=== PATIENT | male | born 1950 ===

== ENCOUNTER 2018-08-05 10:55 | Inpatient (IN) | payer MEDICARE ==
[2018-08-05] MEDS ORDERED: Ondansetron ODT 4 MG TAB PO PRN (13:58)
[2018-08-05] MEDS ORDERED: Ondansetron HCl/PF 4 MG/2 ML Vial IVP PRN (13:58)
[2018-08-05] MEDS ORDERED: Acetaminophen 650 MG Suppository PR PRN (13:58)
[2018-08-05] MEDS ORDERED: RENALLY ADJUST ABX IVPB PRN (14:03)
[2018-08-05] MEDS ORDERED: Dextrose 50% Abboject 50 ML SYRINGE SLOW IVP PRN (14:03)
[2018-08-05] MEDS ORDERED: Insulin Regular 300 UNITS/3 ML VIAL SC PRN (14:03)
[2018-08-05] MEDS ORDERED: Dextrose 5% in Water 1,000 ML IV PRN (14:03)
[2018-08-05] MEDS ORDERED: Acetaminophen 650 MG/20.3 ML UDCUP PO PRN (14:06)
[2018-08-05] MEDS ORDERED: Lacri-Lube Opth Oint 3.5 GM TUBE EA EYE PRN (14:06)
[2018-08-05] MEDS ORDERED: Sodium Bicarbonate 100 MEQ in Sodium Chloride 0.45% 1,000 ML IV SCH (14:15)
[2018-08-05 14:44] LABS: Hemoglobin 11.3 g/dL (14.0-18.0); Lactic Acid 2.4 mmol/L (0.5-2.2); Mean Corpuscular HGB CONC 32.7 g/dL (32.0-36.0); Mean Corpuscular Hemoglobin 31.5 pg (27.0-31.0); Mean Corpuscular Volume 96.6 fL (78.0-98.0); Mean Platelet Volume 8.1 fL (7.4-10.4); Platelet Count 205 thou/uL (130-400); RBC Distribution Width 13.6 % (11.5-14.5); Red Blood Cell (RBC) Count 3.59 mill/uL (4.70-6.10); White Blood Cell (WBC) Count 6.4 thou/uL (4.8-10.8)
[2018-08-05 14:49] LABS: ALT (SGPT) 285 U/L (8-55); AST (SGOT) 605 U/L (5-34); Alkaline Phosphatase 69 U/L (40-150); Anion Gap 15 mmol/L (10-20); BUN (Urea Nitrogen) 58 mg/dL (8.4-25.7); Bilirubin, Total 0.5 mg/dL (0.2-1.2); CRP (Inflammatory) 26.19 mg/dL (= or < 0.5); Calc. Creatinine Clearance 44 mL/min (70-130); Calcium 7.9 mg/dL (7.8-10.44); Carbon Dioxide 17 mmol/L (23-31); Chloride 103 mmol/L (98-107); Estimated GFR-MDRD 26; Glucose 158 mg/dL (80-115); Magnesium 1.4 mg/dL (1.6-2.6); Phosphorus 3.5 mg/dL (2.3-4.7); Sodium 131 mmol/L (136-145)
--- NOTE | 2018-08-05 14:49 | HP ---
DATE OF ADMISSION: 08/05/2018 PRIMARY CARE PHYSICIAN: Dr. Gatito Rose at [facility]. CHIEF COMPLAINT: Patient is a transfer from [facility] for higher level of c are. 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 This started on 08/03/2018 around 9 :00 p.m. after he ate a hamburger. His abdominal pain was cramping and generalized. He had vomited 5 times. In the emergency room at [place], he was found to have sodium of 134, potassium 4.4, lac tic acid 3.1 with creatinine 2.6. WBC 11.4. His symptoms improved with conservative measures. His stool for C. diff was negative. His stool; however, was leukocyte esterase positive. He was admitte d to [facility] for possible gastroenteritis. He did well until yesterday. This morning, he complained of abdominal distention along with pain. He was sent for the CT scan whe n he passed out. He was also found to have difficulty breathing. ABGs were done that showed pH of 7 .24 with CO2 of 33, pO2 of 100%. His bicarbonate was 14. He was also found to have elevated LFTs. He was transferred to this facility for higher level of care. PAST MEDICAL HISTORY: 1. Diabetes mellitus type 1, on insulin. 2. Degenerative joint disease. 3. Chronic kidney disease, baseline creatinine unavailable. 4. Chronic idiopathic demyelinating polyneuropathy. 5. Hyperlipidemia. 6. Hypertension. 7. Coronary artery disease, status post CABG x2 in 2005. 8. Peripheral vascular disease. 9. Diabetic retinopathy. 10. History of cerebrovascular accident. 11. History of falls. 12. Hypothyroidism. PAST SURGICAL HISTORY: 1. CABG. 2. Multiple back surgeries. 3. Right shoulder surgery. 4. Cholecystectomy. 5. GERD. ALLERGIES: Patient is allergic to TENORMIN. CURRENT HOME MEDICATIONS: We will try to obtain accurate list of medications from the family. SOCIAL HISTORY: Patient currently lives at home with his family. He is FULL CODE, makes his own dec ision with the help of his family. No current use of smoking, alcohol or drug use. He drinks alcoho l socially. FAMILY HISTORY: Mother had heart disease. She at the age of 64 with congestive heart failure. Father had unknown brain surgery. One sister at age of 30 with leukemia. REVIEW OF SYSTEMS: The following complete review of systems was negative, unless otherwise mentioned in the HPI or below: Constitutional: Weight loss or gain, ability to conduct usual activities. Skin: Rash, itching. Eyes: Double vision, pain. ENT/Mouth: Nose bleeding, neck stiffness, pain, tenderness. Cardiovascular: Palpitations, dyspnea on exertion, orthopnea. Respiratory: Shortness of breath, wheezing, cough, hemoptysis, fever or night sweats. Gastrointestinal: Poor appetite, abdominal pain, heartburn, nausea, vomiting, constipation, or diarr hea. Genitourinary: Urgency, frequency, dysuria, nocturia. Musculoskeletal: Pain, swelling. Neurologic/Psychiatric: Anxiety, depression. Allergy/Immunologic: Skin rash, bleeding tendency. PHYSICAL EXAMINATION: CURRENT VITAL SIGNS: Patient is afebrile with blood pressure of 100/68, heart rate of 109, O2 satura tion 100% on nasal cannula, respiration of 26. GENERAL: A 67-year-old male in no apparent distress. NG tube in place. HEENT: Head atraumatic, normocephalic. Sclerae are anicteric. Dry mucous membrane, no oral lesion. NECK: Supple, no JVD appreciated. No carotid bruit. LUNGS: Clear to auscultation bilaterally with diminished air entry at bases. HEART: S1, S2 present. Regular rate and rhythm. No rubs or gallops. Healed midline scar from prev ious CABG. ABDOMEN: Protuberant. Bowel sounds were somewhat hyperactive. Mild diffuse tenderness, no rebound or guarding appreciated. EXTREMITIES: No edema or calf tenderness. NEUROLOGIC: Grossly nonfocal, moves all four extremities. PSYCHIATRIC: Alert, awake, oriented x3. SKIN: Warm and dry. LYMPH NODES: No palpable lymph nodes in the neck. LABORATORY DATA AND IMAGING DATA: 1. Lab findings at [facility], sodium 128, potassium 4.8, chloride 101, bicarb 14, BUN 56, creatinine 1.29, albumin of 3.4, total bilirubin 0.8, alkaline phosphatase 85, AST 940, ALT 361. 2. Urinalysis was negative for WBC, bacteria yesterday. 3. Creatinine yesterday was 2.6. 4. CBC showed WBC 11.4 with hemoglobin 13, hematocrit 38.8, platelet count of 320. Influenza screen was negative. 5. Telemetry monitoring by my review showed sinus tachycardia. 6. CT scan of the abdomen at [facility] showed bowel obstruction. There is a disk in the chart. No report available. IMPRESSION 1. Small-bowel obstruction on the CT scan. 1. Syncopal episode earlier today. 2. Hospitalization for nausea, vomiting, diarrhea with suspected gastroenteritis two days ago at [facility]. 3. Diabetes mellitus type 1. 4. Acute kidney injury on chronic kidney disease stage 4. 5. Metabolic acidosis. 6. Respiratory distress, improved. 7. CIDP. 8. Gastroesophageal reflux disease. 9. Degenerative joint disease. 10. Hypothyroidism. 11. Hyperlipidemia. 12. Hypertension. PLAN: The patient will be monitored in the Intensive Care Unit. Critical Care and General Surgery w ill be consulted. We will repeat all the labs. We will start him on empiric antibiotics. We will g et stool workup. Insulin sliding scale. IV hydration. Plan of care was discussed with the patient and he stated understanding.
[2018-08-05 14:50] LABS: Band 12 % (5-11); Dohle Bodies SLIGHT; Lymphocytes 4 % (21-51); MDiff Complete? YES; Metamyelocyte 1 % (0-0); Monocytes 7 % (0-10); Neutrophil 76 % (42-75); PLT Morphology Comment Appears Adequate; Polychromasia SLIGHT = 2-3 cells (100X) (0-2/hpf)
[2018-08-05 15:06] LABS: Troponin I 4.704 ng/mL (< 0.028)
[2018-08-05] MEDS: Sodium Chloride 0.9% 1,000 ML IV SCH (15:55)
[2018-08-05] MEDS ORDERED: Aspirin 300 MG Suppository PR SCH (16:00)
[2018-08-05] MEDS: metroNIDAZOLE 500 MG in Premix Bag 1 BAG IVPB SCH (16:26)
[2018-08-05] MEDS: Piperacillin/Tazobactam 3.375 GM in Sodium Chloride 0.9% 100 ML IVPB SCH (16:44)
[2018-08-05 20:14] LABS: Lactic Acid 1.4 mmol/L (0.5-2.2)
[2018-08-05 20:25] LABS: Base Excess (BEa) -4.3 mEq/L (-2.0 to +3.0); CO2 Tension 34.1 mmHg (35.0-45.0); Calcium, Ionized 1.07 mmol/L (1.12-1.30); Carboxyhemoglobin (COHb) 1.6 gm% (0.0-3.0); Hemoglobin (Hb) 10.9 g/dL (14.0-18.0); O2 Tension (PaO2) 83.7 mmHg (> 80.0); Potassium - ABG Lab 3.82 mmol/L (3.70-5.30); pH, Arterial 7.39 (7.35-7.45)
[2018-08-05 20:26] LABS: ALV-art Gradient 73.315 (0-20); Puncture Site LBA
[2018-08-05 20:37] LABS: CKMB 48.6 ng/mL (0-6.6); Troponin I 21.883 ng/mL (< 0.028)
[2018-08-05] MEDS ORDERED: Heparin 10,000 UNITS/ 10 ML VIAL SLOW IVP SCH (21:15)
[2018-08-05] MEDS ORDERED: Metoprolol Tartrate 5 MG/5 ML VIAL IVP SCH ×2 (21:15→21:45)
--- NOTE | 2018-08-05 21:21 | CON ---
DATE OF CONSULTATION: 08/05/2018 This encompassed 70 minutes of time. Of that time, greater than 50% was spent with the patient and/o r on the patient's unit in the hospital. CONSULTING PHYSICIAN: Dr. Ty from the Hospitalist group. REASON FOR CONSULTATION: ICU stay. HISTORY OF PRESENT ILLNESS: The patient is a 67-year-old male who was admitted to the hospital in [facility] yesterday. He became ill after consuming some hamburger meat. He has been having voluminous diarrhea. Today, when he went for a CT scan, he had some respiratory distress. An ABG was drawn sh owing a metabolic acidosis. The CT scan apparently showed a small-bowel obstruction. He was sent he re for further evaluation from our general surgical team. At the time of my exam, the patient is abl e to communicate without much difficulty. PAST MEDICAL HISTORY: 1. Chronic inflammatory demyelinating polyneuropathy. 2. Diabetes mellitus type 2. 3. Gastroesophageal reflux. 4. Hypertension. 5. Hypothyroidism. 6. Coronary artery disease. PAST SURGICAL HISTORY: 1. Two-vessel coronary artery bypass grafting surgery. 2. Cervical surgery. 3. Cholecystectomy. 4. Lumbar surgery. OUTPATIENT MEDICATIONS: Levothyroxine 125 mcg every morning; gabapentin 300 mg 1/2 tablet 3 times da fredi; primidone 50 mg 2 in the morning, 1 in lunch, 2 at bedtime; Nexium 40 mg daily; cyclobenzaprine 5 mg 2 nightly; atorvastatin 40 mg daily; fenofibrate 200 mg daily; azathioprine 50 mg daily for his CIDP; liothyronine 5 mg daily; cilostazol 100 mg daily; oxcarbazepine 300 mg nightly; Plavix 75 mg d aily; ramipril 5 mg twice daily; folate 40 mg daily; Advil 200 mg 2 nightly; vitamin D3 of 5000 inter national units daily; Alphagan eyedrops, aspirin 81 mg daily; fish oil 1200 mg daily; Tresiba 57 unit s in the morning; NovoLog insulin 19 units in the morning, 25 units in the evening; Bystolic 5 mg robyn ly; and amlodipine 5 mg daily. ALLERGIES: TENORMIN. SOCIAL HISTORY: Drinks 1-2 drinks per month. Never a smoker. Does not use illicit drugs. FAMILY MEDICAL HISTORY: Unknown. REVIEW OF SYSTEMS: Remarkable for abdominal pain, nausea, and diarrhea, otherwise negative. PHYSICAL EXAMINATION: VITAL SIGNS: Temperature 99.1, O2 sat 100% on 3 liters, heart rate 111, blood pressure 106/67, blood glucose 154. GENERAL: The patient is an elderly male, who seems to be in some abdominal discomfort. He does not seem to be in any respiratory discomfort. HEENT: Pupils are reactive. Sclerae are anicteric. Oropharynx dry. NECK: No JVD, no carotid bruits, no thyromegaly. CARDIOVASCULAR: S1, S2, slightly tachycardic. No audible murmur. LUNGS: Clear without wheeze or rhonchi. ABDOMEN: Distended, slightly tympanic. He is tender in the midline. EXTREMITIES: No clubbing, cyanosis, or edema. LABORATORY DATA: White blood cell count 6.4, hemoglobin 11, hematocrit 34.6, platelet count 205. An ABG from this morning apparently showed pH 7.24. His chemistry is pending. ASSESSMENT: 1. Small-bowel obstruction. 2. Metabolic acidosis. 3. History of diabetes mellitus. 4. History of chronic inflammatory demyelinating polyneuropathy. PLAN: 1. General surgical consultation has been ordered by the hospitalist group. 2. IV hydration. 3. He was apparently given bicarbonate in [place]. We are rechecking his chemistry at this time. He may need to be started on a bicarbonate drip. 4. Broad spectrum IV antibiotics. 5. Would suggest a cortisol check if that has not been done. The patient could have been on steroid s in the last year with his chronic inflammatory demyelinating polyneuropathy and addisonian crisis c ould present like this.
[2018-08-05] MEDS: Heparin 25,000 units/D5W 500 ML IV SCH (21:33)
[2018-08-05] MEDS: Famotidine/PF 20 mg/2ml Vial SLOW IVP SCH (21:42)
[2018-08-05 22:31] LABS: CKMB 62.7 ng/mL (0-6.6); Troponin I 29.364 ng/mL (< 0.028)
[2018-08-06] MEDS: metroNIDAZOLE 500 MG in Premix Bag 1 BAG IVPB SCH ×3 (01:08→16:53)
[2018-08-06] MEDS: Piperacillin/Tazobactam 3.375 GM in Sodium Chloride 0.9% 100 ML IVPB SCH ×3 (01:11→16:54)
[2018-08-06] MEDS: Sodium Chloride 0.9% 1,000 ML IV SCH ×3 (01:12→16:38)
[2018-08-06 01:39] LABS: Band 24 % (5-11); Hemoglobin 11.1 g/dL (14.0-18.0); Lymphocytes 2 % (21-51); MDiff Complete? YES; Mean Corpuscular HGB CONC 32.9 g/dL (32.0-36.0); Mean Corpuscular Hemoglobin 31.1 pg (27.0-31.0); Mean Corpuscular Volume 94.7 fL (78.0-98.0); Mean Platelet Volume 8.2 fL (7.4-10.4); Monocytes 11 % (0-10); Neutrophil 63 % (42-75); Platelet Count 182 thou/uL (130-400); RBC Distribution Width 13.6 % (11.5-14.5); Red Blood Cell (RBC) Count 3.58 mill/uL (4.70-6.10); White Blood Cell (WBC) Count 6.9 thou/uL (4.8-10.8)
[2018-08-06 01:53] LABS: Troponin I 40.377 ng/mL (< 0.028)
[2018-08-06 02:23] LABS: ALT (SGPT) 249 U/L (8-55); AST (SGOT) 484 U/L (5-34); Albumin 2.9 g/dL (3.4-4.8); Alkaline Phosphatase 60 U/L (40-150); BUN (Urea Nitrogen) 60 mg/dL (8.4-25.7); Bilirubin, Total 0.4 mg/dL (0.2-1.2); Calc. Creatinine Clearance 50 mL/min (70-130); Carbon Dioxide 16 mmol/L (23-31); Estimated GFR-MDRD 31; Globulin 3.1 g/dL (2.4-3.5); Glucose 144 mg/dL (80-115); Magnesium 1.5 mg/dL (1.6-2.6)
[2018-08-06 02:33] LABS: Anion Gap 17 mmol/L (10-20); Chloride 105 mmol/L (98-107); Potassium 4.1 mmol/L (3.5-5.1); Sodium 134 mmol/L (136-145)
--- NOTE | 2018-08-06 03:51 | CON ---
DATE OF CONSULTATION: 08/05/2018 Referred by Internal Medicine. SURGERY ATTENDING: Dr. Tor Montes. REASON FOR CONSULTATION: Acute abdomen, concern for SBO. HISTORY OF PRESENT ILLNESS: Mr. De Santiago is a 67-year-old male with a past medical history of coronary artery disease, CVA, CABG, cholecystectomy, CIDP, blindness, CKD listed as stage 4 per chart review, although not reported per the family, who was transferred to our facility today from [facility] after a 2-day stay for diarrhea and acute illness. The patient had a CT today that was not enhanc ed with oral or IV contrast and it showed air attenuation in the left hepatic lobe, suggesting possib le portal venous air. No pneumatosis. Normal caliber appendix, mucosal thickening of the sigmoid co joan and rectum and concern for a small-bowel obstruction. The patient is still passing diarrhea sinc e Wednesday. He has an NG tube with bilious output. He is passing flatus. He has some mild general ized abdominal pain. He was also noted to have a troponin of 4, so Cardiology has been consulted. T he patient did have a lactate that was elevated according to the RN on chart review of over 3 today. He has no leukocytosis here. His renal function has been worsening and he has a metabolic acidosis. REVIEW OF SYSTEMS: General: Generalized weakness. Respiratory: No respiratory distress, no cough, no shortness of breath. Cardiovascular: No current chest pain. Abdomen: Slight abdominal tendern ess. No vomiting since Wednesday. Positive for diarrhea. Positive for flatus and decreased urine o utput per the patient. The remainder of comprehensive review of systems as regard is negative other than reported above and the HPI. PAST MEDICAL HISTORY: 1. Diabetes. 2. Hypertension. 3. Cerebrovascular accident. 4. CKD. 5. Blindness. 6. CIDP. PAST SURGICAL HISTORY: 1. Cholecystectomy. 2. CABG. 3. Rotator cuff surgery. MEDICATIONS: Imuran 50 mg daily; omega 3 fatty acids 1 cap daily; aspirin 81 daily; Bystolic 5 mg da fredi; aspart 100 mg subcu as directed; amlodipine 5 mg daily; Tresiba 57 units subcu daily; brimonidin e eye drops 1 drop each eye daily; vitamin D3 5000 units daily; ibuprofen as needed at night; folic a tamela 0.4 mg daily; Altace 2 tabs, unknown dose twice daily; Cytomel 5 mcg daily; fenofibrate 200 mg da fredi; clopidogrel 75 mg daily; cilostazol 100 mg a daily; atorvastatin 40 mg daily; Trileptal 300 mg d aily; Nexium 20 mg daily; Flexeril 2 tabs in the evening, unknown dose; Mysoline 1 tab at noon 2 tabs twice daily; gabapentin 0.5 three times daily; Synthroid 125 mcg daily. ALLERGIES: ATENOLOL. FAMILY HISTORY: Noncontributory. 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 SOCIAL HISTORY: The patient is a lifelong nonsmoker, socially drinks alcohol. Lives with his o [facility]. PHYSICAL EXAMINATION: VITAL SIGNS: Temperature is 99.1, blood pressure 124/59, heart rate is 106, respiratory rate is 24, O2 sats 100% on room air. GENERAL: This is a 67-year-old male lying in bed, appears slightly withdrawn, but will answer questi ons. Reports dry mouth and chronically ill, in mild distress. HEENT: Normocephalic, atraumatic. Trachea is midline. NECK: No JVD is appreciated. Does have dry mucous membranes. CARDIOVASCULAR: No murmurs are appreciated. Slight tachypnea is appreciated. Tachycardic. Rhythm is regular. He does have trace bipedal edema 2+ the level just above the ankles. Strong radial puls es and no yury murmurs are appreciated. ABDOMEN: Protuberant. It is mildly distended, mildly tender throughout, but no yury peritoneal sig ns are appreciated. PELVIS: A Cruz and catheters in place with yellow urine. MUSCULOSKELETAL: Moves extremities well. No yury deformities. SKIN: Pale, warm, and dry. PSYCHIATRIC: Somewhat withdrawn, but otherwise is conversive. NEUROLOGIC: Alert and oriented. LABORATORY DATA: We have in our system, white blood cell count of 6.4, platelets of 205, hemoglobin and hematocrit 11.3 and 34.6 respectively. Chemistry from today shows troponin of 4.70. Sodium is 1 31, potassium 4.0, chloride is 103, carbon dioxide is 17, BUN is 58, creatinine is 2.46, glucose 158, AST and ALT 605 and 285 respectively. CRP is 26.19. Albumin is 3.0. Cortisol is 21.1. A CT non-c ontrast from the outside facility which we are trying to pull the images up now, it shows: 1. Markedly limited evaluation. 2. Air attenuation in the left hepatic lobe suggesting possible portal venous air. There does appea r to be a small-bowel obstruction and completely evaluated. Normal appendix. Mucosal thickening of the sigmoid colon and rectum. ASSESSMENT AND PLAN: 1. Possible acute abdomen. 2. Concern for ischemic colitis. 3. Does not appear to be small-bowel obstruction. RECOMMENDATIONS: 1. Dr. Montes was not at the bedside. We are evaluating. 2. Check a lactate level. 3. He needs hydration. Currently on normal saline 125 per hour. 4. Review current labs. 5. We will try to review imaging and create a better plan. The patient may need surgical correction of his acute process at this time. Agree with ICU admission. 6. Cardiology has seen the patient at the bedside, we appreciate recommendations. 7. We will continue to develop this dynamic plan in Mr. De Santiago and update him. The nursing staff nadine ignacio coordinate with the primary team. At this time, we recommend keeping the patient n.p.o. and shelby ignacio continue to follow along and provide surgical assistance as needed. It does not appear that the ron ledezma has a small bowel obstruction, at this time, it is a functional bowel, but we are acutely ravin rned about ischemic colitis. This patient was seen with Dr. Montes and can be updated as needed.
--- NOTE | 2018-08-06 10:06 | PDOC.PN ---
- Subjective Encounter Start Date: 08/06/18 Encounter Start Time: 10:05 Mr. De Santiago was seen today in follow-up of nausea and vomiting, and elevated troponin's. He says today he feels better. He denies abdominal pain or chest pain. He says he does not feel nauseated. - Objective Resuscitation Status: Resuscitation Status FULL:Full Resuscitation MAR Reviewed: Yes Vital Signs & Weight: Vital Signs (12 hours) Temp Pulse Resp Pulse Ox 08/06/18 06:24 100 08/06/18 06:23 91 25 H 100 08/06/18 04:00 98.3 F 08/06/18 03:00 100.3 F H 08/06/18 02:28 93 26 H 100 08/06/18 00:00 100.7 F H Weight Weight 3.771 oz Most Recent Monitor Data Heart Rate from ECG 87 NIBP 128/69 NIBP BP-Mean 88 Respiration from ECG 22 SpO2 100 I&O: 08/05/18 08/06/18 08/07/18 06:59 06:59 06:59 Intake Total 2415 Output Total 1435 Balance 980 Result Diagrams: 08/06/18 00:52 08/06/18 00:52 Additional Labs: Accuchecks 08/06/18 08/06/18 08/05/18 05:00 00:51 20:52 POC Glucose 134 H 145 H 116 H 08/05/18 14:20 POC Glucose 154 H Phys Exam - Physical Examination HEENT: PERRLA, sclera anicteric Respiratory: no wheezing, no rales, no rhonchi, clear to auscultation bilateral Cardiovascular: RRR, no significant murmur, no rub Gastrointestinal: soft, non-tender, no distention, positive bowel sounds Musculoskeletal: edema present trace pedal edema Dx/Plan (1) NSTEMI (non-ST elevated myocardial infarction) Code(s): I21.4 - NON-ST ELEVATION (NSTEMI) MYOCARDIAL INFARCTION Status: Acute (2) Diabetes mellitus type 2, insulin dependent Code(s): E11.9 - TYPE 2 DIABETES MELLITUS WITHOUT COMPLICATIONS; Z79.4 - SENIOR LIVING (CURRENT) USE OF INSULIN Status: Chronic (3) Hypertension Code(s): I10 - ESSENTIAL (PRIMARY) HYPERTENSION Status: Chronic (4) Acute renal failure Status: Acute (5) CIDP (chronic inflammatory demyelinating polyneuropathy) Code(s): G61.81 - CHRONIC INFLAMMATORY DEMYELINATING POLYNEURITIS Status: Chronic (6) Elevated LFTs Code(s): R94.5 - ABNORMAL RESULTS OF LIVER FUNCTION STUDIES Status: Acute - Plan * Nausea and Vomiting has resolved- ? due to NSTEMI. Small bowel Obstruction has been ruled out * NSTEMI- Cardiology has been consulted- Continue Heparin, and will restart his Statin and Beta-davis Continue Aspirin. Re-start Plavix as per Cardiology- Echo has been done, and results are pending * Elevated LFT's- ? due to NSTEMI- will continue to trend * HTN- blood pressure is stable, but his heart rate is a bit elevated * DM- continue SSI for now * Acute vs. Chronic kidney disease- will monitor, and hopefully can obtain some baseline levels * CIDP- stable .
[2018-08-06] MEDS: Insulin Regular 300 UNITS/3 ML VIAL SC PRN (10:14)
[2018-08-06] MEDS ORDERED: Clopidogrel Bisulfate 75 MG TAB PO SCH ×2 (10:24→11:00)
[2018-08-06] MEDS ORDERED: Metoprolol Tartrate 25 MG TAB PO SCH (11:15)
--- NOTE | 2018-08-06 11:49 | PRG ---
DATE OF SERVICE: 08/06/2018 SUBJECTIVE: Mr. De Santiago was diagnosed with a myocardial infarction last night when his troponins came back elevated. He says he feels somewhat better today. PHYSICAL EXAMINATION: VITAL SIGNS: On exam, his temperature is 98.3 with a T-max of 100.7, pulse 87, blood pressure 128/69 . A 24-hour intake 2415 and output 1435. HEENT EXAM: Unremarkable. NECK: No JVD. LUNGS: Clear without wheezing or rhonchi. CARDIOVASCULAR: S1 and S2, regular. ABDOMEN: Soft. EXTREMITIES: No edema. LABORATORY DATA: White blood cell count 6.9, hematocrit 33.9, platelet count 182. Sodium 134, potas sium 4.1, chloride 105, CO2 of 16, BUN 60, creatinine 2.1, glucose 144. His anion gap is 17, his tro ponin is 40, AST 484, ALT 249. BNP 766. ASSESSMENT: 1. Myocardial infarction. 2. Small-bowel obstruction. 3. Metabolic acidosis. 4. Renal insufficiency. 5. Diarrhea. 6. Diabetes mellitus, type 2. 7. Chronic inflammatory demyelinating polyneuropathy. PLAN: The patient is continuing gentle hydration. He is on antibiotic therapy for the small-bowel o bstruction and diarrheal illness. Dr. Nicole placed him on a heparin drip and is monitoring his ca rdiac status. The patient will remain in the CCU for the time being. His labs will be monitored molly
[2018-08-06] MEDS: OXcarbazepine 300 MG TAB PO SCH (12:01)
[2018-08-06] MEDS ORDERED: Furosemide 40 MG/4 ML VIAL ONE (16:51)
[2018-08-06] MEDS: Heparin 25,000 units/D5W 500 ML IV SCH (16:53)
[2018-08-06] MEDS ORDERED: Furosemide 20 MG/2 ML VIAL SLOW IVP SCH (17:15)
--- NOTE | 2018-08-06 18:12 | PRG ---
CRITICAL CARE NOTE Time: 30 minutes. The patient is a 67-year-old gentleman who presents with abdominal discomfort. The patient has a previous history of coronary artery disease. He is status post coronary bypass surgery x2. The patient has done remarkably well. He recently presented to a local hospital with abdominal discomfort, diarrhea and nausea and vomiting. The patient was hospitalized and hydrated. He was transferred here for further evaluation. The patient denies having any chest discomfort. He was noted to have an elevated troponin level. PAST MEDICAL HISTORY: 1. Coronary artery disease. 2. Hypertension. 3. History of cerebrovascular accident. 4. Diabetes mellitus. 5. Chronic idiopathic demyelinating polyneuropathy. 6. Hypothyroidism. PAST SURGICAL HISTORY: 1 Coronary bypass graft surgery 2. Shoulder surgery. 3. Cholecystectomy. 4. Back surgery. ALLERGIES: Tenormin. MEDICATIONS: See nursing list. SOCIAL HISTORY: Nonsmoker. PHYSICAL EXAMINATION: GENERAL: Ill-appearing gentleman with a blood pressure 124/59. NECK: Full. LUNGS: Clear to auscultation. HEART: Regular rate and rhythm, normal S1, S2 with a III/ systolic murmur. ABDOMEN: Distended and tender. EXTREMITIES: Showed trace edema. LABORATORY DATA: Sodium 131, potassium 4.0, chloride 103, bicarb 17, BUN 58, creatinine 2.46, glucose 158. AST was 605. Troponin 4.7. White blood cell count 6.4, hemoglobin 11.3, hematocrit 34.6, platelets are 205. EKG revealed normal sinus rhythm, normal ECG. IMPRESSION: 1. Possible acute abdomen. 2. History of coronary bypass surgery x2. 3. History of cerebrovascular accident. 4. Hypertension. 5. Chronic idiopathic demyelinating polyneuropathy. 6. Markedly elevated liver function tests. 7. Renal insufficiency. This unfortunate gentleman presents with a possible acute abdomen. The patient be evaluated by Surgery. He has an elevated troponin level. He is asymptomatic. His initial EKG showed no acute changes. The patient has received aspirin. We will await further recommendations from surgery. We will follow this patient with you through his hospitalization. Critical care note time 30 minutes. GIULIANO
--- NOTE | 2018-08-06 18:30 | PRG ---
DATE OF SERVICE: 08/06/2018. SUBJECTIVE: Mr. De Santiago is a 67-year-old man who I was asked to see yesterday for possible small-bowel obstruction. Clinical examination yesterday revealed essentially benign abdomen on examination. Th e patient was placed on bowel rest. Overnight, his cardiac function had worsened. He denies any abdominal pain this morning. He admits to passing some flatus. He denies any chest pain, but reports profound fatigue. OBJECTIVE: VITAL SIGNS: This morning includes blood pressure 128/69, pulse is 91, respiratory rate is 25, tempe rature is 98.3 degrees Fahrenheit, oxygen saturation is 100%. HEART: Reveals regular rate with a 2/6 systolic murmur, which is auscultated in the left sternal bor angy. LUNGS: Clear to auscultation bilaterally. Breathing regular and unlabored. ABDOMEN: Soft and obese. He has no abdominal tenderness to palpation. Bowel sounds in all four quadrants appear hypoactive. Clearly, the patient has no peritoneal signs on examination. Liver and spleen nonpalpable below costal margin. LABORATORY DATA: Today includes a CBC which has remained normal at 6900 white blood cells, hemoglobi n 11.1 and hematocrit 33.9, platelet count stable at 182,000. Metabolic profile today sodium 134, potassium 4.1, chloride is 105, bicarbonate is 16, BUN is 60, cre atinine is 2.14, glucose is 144. AST and ALT both decreasing at 484 and 249 respectively. Troponin I, which was 4 on admission yesterday, is now markedly elevated at 40.3. Beta natriuretic peptide/BNP is 766. IMPRESSION: 1. Acute decompensated cardiomyopathy. 2. Portal venous gas likely suspicious for ischemic bowel insult, although there is no clinical evid ence of bowel necrosis. There is definitely no evidence of acute small-bowel obstruction for this patient. PLAN: Defer critical care management to the Pulmonary and Critical Care team. There is no acute surgical indication for this patient at this time. General Surgery will continue t o follow along and make further recommendations as necessary.
[2018-08-06] MEDS: Metoprolol Tartrate 25 MG TAB PO SCH (21:08)
[2018-08-06] MEDS: Famotidine/PF 20 mg/2ml Vial SLOW IVP SCH (21:08)
[2018-08-07] MEDS: metroNIDAZOLE 500 MG in Premix Bag 1 BAG IVPB SCH ×4 (00:13→23:56)
[2018-08-07] MEDS: Piperacillin/Tazobactam 3.375 GM in Sodium Chloride 0.9% 100 ML IVPB SCH ×4 (00:14→23:56)
[2018-08-07 04:12] LABS: ALT (SGPT) 184 U/L (8-55); AST (SGOT) 295 U/L (5-34); Albumin 3.2 g/dL (3.4-4.8); Alkaline Phosphatase 51 U/L (40-150); Anion Gap 15 mmol/L (10-20); BUN (Urea Nitrogen) 42 mg/dL (8.4-25.7); Bilirubin, Total 0.5 mg/dL (0.2-1.2); CK (CPK) 1418 U/L (30-200); Calc. Creatinine Clearance 69 mL/min (70-130); Calcium 8.4 mg/dL (7.8-10.44); Carbon Dioxide 19 mmol/L (23-31); Chloride 103 mmol/L (98-107); Estimated GFR-MDRD 45; Globulin 3.2 g/dL (2.4-3.5); Glucose 170 mg/dL (80-115); Potassium 3.5 mmol/L (3.5-5.1); Protein, Total 6.4 g/dL (5.8-8.1); Sodium 133 mmol/L (136-145)
[2018-08-07 04:23] LABS: Hemoglobin 11.3 g/dL (14.0-18.0); Hypochromia SLIGHT = 6-15 cells (100X) (0-5/hpf); Lymphocytes 4 % (21-51); MDiff Complete? YES; Mean Corpuscular HGB CONC 33.1 g/dL (32.0-36.0); Mean Corpuscular Hemoglobin 31.5 pg (27.0-31.0); Mean Corpuscular Volume 95.2 fL (78.0-98.0); Mean Platelet Volume 8.1 fL (7.4-10.4); Monocytes 3 % (0-10); Neutrophil 93 % (42-75); PLT Morphology Comment Appears Adequate; Platelet Count 195 thou/uL (130-400); RBC Distribution Width 13.6 % (11.5-14.5); White Blood Cell (WBC) Count 8.6 thou/uL (4.8-10.8)
[2018-08-07] MEDS: Levothyroxine Sodium 125 MCG TAB PO SCH (05:26)
[2018-08-07] MEDS: Liothyronine Sodium 5 MCG TAB PO SCH (05:26)
[2018-08-07] MEDS: Clopidogrel Bisulfate 75 MG TAB PO SCH (08:00)
[2018-08-07] MEDS: azaTHIOprine 50 MG TAB PO SCH (08:00)
[2018-08-07] MEDS: Metoprolol Tartrate 25 MG TAB PO SCH ×2 (08:01→20:28)
[2018-08-07] MEDS ORDERED: Nebivolol HCl 5 MG TAB PO SCH (09:00)
[2018-08-07] MEDS ORDERED: Aspirin 81 mg Enteric Coated Tablet PO SCH (09:00)
--- NOTE | 2018-08-07 09:17 | PDOC.PN ---
- Subjective Encounter Start Date: 08/07/18 Encounter Start Time: 09:15 Mr. De Santiago was seen today in follow-up of NSTEMI. Today he feels a bit better. He feels is voice is stronger. At times he feels short of breath, but this he attributes to sliding down in bed, and it is positional. He denies any chest pain. - Objective Resuscitation Status: Resuscitation Status FULL:Full Resuscitation MAR Reviewed: Yes Vital Signs & Weight: Vital Signs (12 hours) Temp Pulse Resp Pulse Ox 08/07/18 08:00 98.9 F 08/07/18 07:17 95 08/07/18 07:15 93 28 H 95 08/07/18 04:00 99.0 F 08/07/18 02:25 91 19 100 08/07/18 00:00 99.5 F 08/06/18 21:56 93 22 H 100 Weight Admit Weight 236 lb 12.423 oz Weight 237 lb 3.478 oz Most Recent Monitor Data Heart Rate from ECG 91 NIBP 146/93 NIBP BP-Mean 110 Respiration from ECG 20 SpO2 95 I&O: 08/06/18 08/07/18 08/08/18 06:59 06:59 06:59 Intake Total 2415 3092 300 Output Total 1435 2195 160 Balance 980 897 140 Result Diagrams: 08/07/18 03:30 08/07/18 03:30 Additional Labs: Accuchecks 08/07/18 08/07/18 08/06/18 03:21 01:23 21:14 POC Glucose 158 H 157 H 167 H 08/06/18 08/06/18 17:18 10:06 POC Glucose 139 H 162 H Phys Exam - Physical Examination HEENT: PERRLA, sclera anicteric Respiratory: no wheezing, no rales, no rhonchi, clear to auscultation bilateral Cardiovascular: RRR, no rub 2/6 systolic murmur to carotids, no gallop Gastrointestinal: soft, non-tender, positive bowel sounds + mildly distended, tympanic to percussion Musculoskeletal: no edema, pulses present Neurological: non-focal Skin: normal turgor, cap refill <2 seconds Dx/Plan (1) NSTEMI (non-ST elevated myocardial infarction) Code(s): I21.4 - NON-ST ELEVATION (NSTEMI) MYOCARDIAL INFARCTION Status: Acute (2) Chronic systolic congestive heart failure, NYHA class 2 Code(s): I50.22 - CHRONIC SYSTOLIC (CONGESTIVE) HEART FAILURE Status: Acute (3) Diabetes mellitus type 2, insulin dependent Code(s): E11.9 - TYPE 2 DIABETES MELLITUS WITHOUT COMPLICATIONS; Z79.4 - RETIREMENT (CURRENT) USE OF INSULIN Status: Chronic (4) Hypertension Code(s): I10 - ESSENTIAL (PRIMARY) HYPERTENSION Status: Chronic (5) Acute renal failure Status: Acute (6) CIDP (chronic inflammatory demyelinating polyneuropathy) Code(s): G61.81 - CHRONIC INFLAMMATORY DEMYELINATING POLYNEURITIS Status: Chronic (7) Elevated LFTs Code(s): R94.5 - ABNORMAL RESULTS OF LIVER FUNCTION STUDIES Status: Acute (8) Aortic stenosis Code(s): I35.0 - NONRHEUMATIC AORTIC (VALVE) STENOSIS Status: Acute - Plan * NSTEMI- continue Heparin drip, beta-davis, aspirin and plavix * Echo was noted, he has an EF of 20-30% with severe . He appears clinically compensated, and not in overt heart failure- will re-start Ramipril once he has recovered from the Acute renal failure * Acute renal failure- improved creatinine is down to 1.55- continue gentle hydration * DM- blood glucose is stable. * Records from [facility] in [place] have been requested
--- NOTE | 2018-08-07 10:01 | PRG ---
DATE OF SERVICE: 08/07/2018 SUBJECTIVE: The patient remains in the CCU. He is on a heparin drip. He is no longer having abdomi nal pain. His echo yesterday showed ejection fraction of about 20%-30%. He has severe aortic stenos is. PHYSICAL EXAMINATION: VITAL SIGNS: His temperature is 98.9, pulse 91, blood pressure 146/93, O2 sat 95% on nasal cannula. He is on heparin drip. HEENT: Unremarkable. NECK: No JVD. CARDIAC: S1, S2 regular with 3/6 systolic murmur. LUNGS: Clear. ABDOMEN: Soft, distended, hypoactive bowel sounds. EXTREMITIES: No clubbing, cyanosis, or edema. LABORATORY DATA: White blood cell count 8.6, hematocrit 34.3, platelet count 195. PTT is 49.6. Sod ium 133, potassium 3.5, chloride 103, CO2 of 19, BUN 42, creatinine 1.5, glucose 170, AST 295, ALT 18 4. CPK 1418. ASSESSMENT: 1. Acute myocardial infarction. 2. Severe aortic stenosis. 3. Likely ischemic bowel and ischemic liver. 4. Diabetes mellitus type 2. 5. Chronic inflammatory demyelinating polyneuropathy. 6. Probably not a true small-bowel obstruction. PLAN: The patient is continuing antibiotic therapy for the ischemic bowel. He is continuing care of his CA per Cardiology, is sounding like he may need to be transferred down to [facility] where his h eart surgeon is for consideration of aortic valve replacement. His diet can advance as tolerated. H is prognosis is guarded. From my standpoint, he can be transferred out to the [facility] if okay with othe r specialists.
[2018-08-07] MEDS: Insulin Regular 300 UNITS/3 ML VIAL SC PRN ×2 (11:32→16:04)
[2018-08-07] MEDS: OXcarbazepine 300 MG TAB PO SCH (11:32)
--- NOTE | 2018-08-07 12:49 | PRG ---
DATE OF SERVICE: 08/07/2018 SUBJECTIVE: Mr. De Santiago is a 67-year-old man who has seen in the last 48 hours for possible acute abdo men and bowel obstruction. The patient may very well have had non-ST elevation VT given the marked a bnormalities with troponin as well as ejection fraction of 25%-30% on a recent echocardiography. Tod ay, the patient reports no chest pain. He is hungry and wants to eat. He clearly denies any abdomin al pain, nausea or vomiting. He is passing flatus. He had a bowel movement last night. OBJECTIVE: VITAL SIGNS: This morning includes blood pressure 153/84, pulse 84, respiratory rate is 22, temperat ure 98.9 degrees Fahrenheit, oxygen saturation is 100% on room air. HEART: Reveals regular rate and rhythm with 2/6 systolic murmur, which is best auscultated in the le ft sternal border. LUNGS: Clear to auscultation bilaterally. Breathing is regular and unlabored. ABDOMEN: Soft and obese with no tenderness to palpation. Clearly, the patient has no peritoneal sig ns on examination. NEUROLOGIC: Examination reveals no focal deficits present. LABORATORY DATA: Pertinent laboratory findings today includes CBC with 8,600 white blood cells, hemo globin and hematocrit 11.3 and 34.3 respectively. Platelet count is 195,000. Differential counts ar e as follows, 93% segmented neutrophils, 4 lymphocytes, 3 monocytes, no bands. Chemistry; sodium 133 , potassium 3.5, chloride is 103, bicarbonate is 19, BUN is 42, creatinine is 1.55, which is an impro vement from 2.14 yesterday, glucose is 170, AST and ALT improving at 295 and 184 respectively. IMPRESSION: 1. Post-admission day #2, resolved acute abdomen. Clearly, there is no clinical evidence of either bowel obstruction or ischemic bowel process. 2. Likely recent non-ST elevation VT, stable. 3. Resolving acute kidney injury. 4. Resolving acute ischemic hepatitis. PLAN: We will advance the patient's diet as he has been able to tolerate clear liquids overnight. The remainder of medical management is deferred to the Pulmonary and Critical Care Service. Clearly, there is no acute surgical indication for this patient at this time.
[2018-08-07] MEDS: Atorvastatin Calcium 40 MG TAB PO SCH (20:28)
[2018-08-07] MEDS: Enoxaparin Sodium 30 MG/0.3 ML SYRINGE SC SCH (20:29)
[2018-08-07] MEDS: Famotidine/PF 20 mg/2ml Vial SLOW IVP SCH (20:29)
[2018-08-07] MEDS: Gabapentin 100 MG CAP PO SCH (21:25)
[2018-08-08 04:40] LABS: ALT (SGPT) 119 U/L (8-55); AST (SGOT) 128 U/L (5-34); Albumin 2.9 g/dL (3.4-4.8); Alkaline Phosphatase 47 U/L (40-150); Anion Gap 14 mmol/L (10-20); BUN (Urea Nitrogen) 29 mg/dL (8.4-25.7); Bilirubin, Total 0.6 mg/dL (0.2-1.2); Calc. Creatinine Clearance 94 mL/min (70-130); Calcium 8.5 mg/dL (7.8-10.44); Carbon Dioxide 20 mmol/L (23-31); Chloride 103 mmol/L (98-107); Estimated GFR-MDRD 64; Globulin 3.1 g/dL (2.4-3.5); Glucose 160 mg/dL (80-115); Potassium 3.3 mmol/L (3.5-5.1); Sodium 134 mmol/L (136-145)
[2018-08-08 04:52] LABS: Hemoglobin 11.1 g/dL (14.0-18.0); Mean Corpuscular HGB CONC 33.4 g/dL (32.0-36.0); Mean Corpuscular Hemoglobin 31.7 pg (27.0-31.0); Mean Corpuscular Volume 94.9 fL (78.0-98.0); Mean Platelet Volume 8.4 fL (7.4-10.4); Platelet Count 218 thou/uL (130-400); RBC Distribution Width 13.5 % (11.5-14.5); Red Blood Cell (RBC) Count 3.51 mill/uL (4.70-6.10); White Blood Cell (WBC) Count 7.6 thou/uL (4.8-10.8)
[2018-08-08 04:55] LABS: Eosinophils 1 % (0-10); Hypochromia SLIGHT = 6-15 cells (100X) (0-5/hpf); Lymphocytes 4 % (21-51); MDiff Complete? YES; Monocytes 6 % (0-10); Neutrophil 89 % (42-75); Nucleated RBC 1 % (0); PLT Morphology Comment Appears Adequate; Polychromasia SLIGHT = 2-3 cells (100X) (0-2/hpf)
[2018-08-08] MEDS: Levothyroxine Sodium 125 MCG TAB PO SCH (05:22)
[2018-08-08] MEDS: Liothyronine Sodium 5 MCG TAB PO SCH (05:22)
[2018-08-08] MEDS ORDERED: Potassium Chloride 20 MEQ TAB PO SCH (08:00)
[2018-08-08] MEDS: Furosemide 40 MG TAB PO SCH (08:18)
[2018-08-08] MEDS: Metoprolol Tartrate 25 MG TAB PO SCH ×2 (08:18→20:37)
[2018-08-08] MEDS: azaTHIOprine 50 MG TAB PO SCH (08:18)
[2018-08-08] MEDS: Clopidogrel Bisulfate 75 MG TAB PO SCH (08:18)
[2018-08-08] MEDS: Famotidine 20 MG TAB PO SCH ×2 (08:19→20:37)
[2018-08-08] MEDS: Gabapentin 100 MG CAP PO SCH ×3 (08:19→20:38)
[2018-08-08] MEDS: Piperacillin/Tazobactam 3.375 GM in Sodium Chloride 0.9% 100 ML IVPB SCH (08:19)
[2018-08-08] MEDS: metroNIDAZOLE 500 MG in Premix Bag 1 BAG IVPB SCH (08:19)
--- NOTE | 2018-08-08 08:41 | PDOC.PN ---
- Subjective Encounter Start Date: 08/08/18 Encounter Start Time: 08:40 Mr. De Santiago was seen today in follow-up. He does not have any complaints. He denies chest pain or abdominal pain. He has been up on his feet, and denies dizziness or lightheadedness. - Objective Resuscitation Status: Resuscitation Status FULL:Full Resuscitation MAR Reviewed: Yes Vital Signs & Weight: Vital Signs (12 hours) Temp Pulse Resp Pulse Ox 08/08/18 07:00 98.3 F 08/08/18 04:00 97.6 F 08/08/18 02:20 92 24 H 99 08/08/18 00:00 98.0 F 08/07/18 22:35 84 22 H 98 Weight Admit Weight 236 lb 12.423 oz Weight 237 lb 10.533 oz Most Recent Monitor Data Heart Rate from ECG 93 NIBP 147/107 NIBP BP-Mean 120 Respiration from ECG 26 SpO2 100 I&O: 08/07/18 08/08/18 08/09/18 06:59 06:59 06:59 Intake Total 3092 1912 480 Output Total 2195 2020 220 Balance 897 -108 260 Result Diagrams: 08/08/18 03:28 08/08/18 03:28 Additional Labs: Accuchecks 08/07/18 08/07/18 08/07/18 23:59 20:26 16:03 POC Glucose 161 H 190 H 174 H 08/07/18 11:20 POC Glucose 191 H Phys Exam - Physical Examination HEENT: PERRLA Respiratory: no wheezing, no rales, no rhonchi, clear to auscultation bilateral Cardiovascular: RRR, no significant murmur, no rub no gallop Gastrointestinal: soft, non-tender, no distention, positive bowel sounds Musculoskeletal: no edema, pulses present trace pedal edema Psychiatric: A&O x 3 Skin: normal turgor, cap refill <2 seconds Dx/Plan (1) NSTEMI (non-ST elevated myocardial infarction) Code(s): I21.4 - NON-ST ELEVATION (NSTEMI) MYOCARDIAL INFARCTION Status: Acute (2) Chronic systolic congestive heart failure, NYHA class 2 Code(s): I50.22 - CHRONIC SYSTOLIC (CONGESTIVE) HEART FAILURE Status: Acute (3) Diabetes mellitus type 2, insulin dependent Code(s): E11.9 - TYPE 2 DIABETES MELLITUS WITHOUT COMPLICATIONS; 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 Status: Chronic (4) Hypertension Code(s): I10 - ESSENTIAL (PRIMARY) HYPERTENSION Status: Chronic (5) Acute renal failure Status: Acute (6) CIDP (chronic inflammatory demyelinating polyneuropathy) Code(s): G61.81 - CHRONIC INFLAMMATORY DEMYELINATING POLYNEURITIS Status: Chronic (7) Elevated LFTs Code(s): R94.5 - ABNORMAL RESULTS OF LIVER FUNCTION STUDIES Status: Acute (8) Aortic stenosis Code(s): I35.0 - NONRHEUMATIC AORTIC (VALVE) STENOSIS Status: Acute - Plan * NSTEMI- continue aspirin, metoprolol, and plavix- Heparin drip has been discontinued * Chronic systolic heart failure- compensated- No SAMMIE-I right now due to recent IRENE * HTN- blood pressure is stable * DM- blood glucose is stable * Acute renal failure- improved * He can be moved out of the ICU to Telemetry.
--- NOTE | 2018-08-08 09:14 | PRG ---
DATE OF SERVICE: 08/08/2018 SUBJECTIVE: looks well. He has no acute complaints. OBJECTIVE: VITAL SIGNS: Temperature 98.3, pulse 87, blood pressure 144/80. A 24-hour intake 2 and output __ ___. HEENT: Unremarkable. NECK: No JVD. LUNGS: Clear without wheezing. CARDIOVASCULAR: S1, S2 regular. ABDOMEN: Soft, nontender. EXTREMITIES: No edema. Micro data shows no growth to date. LABORATORY DATA: White blood cell count 7.6, hematocrit 33, platelet count 218. Sodium 134, potassi um 3.3, chloride 103, CO2 of 20, BUN 29, creatinine 1.1, glucose 160, AST 120, ALT 119. ASSESSMENT: 1. Acute myocardial infarction. 2. Severe aortic stenosis. 3. Likely ischemic bowel and ischemic liver - seems to be improving. 4. Diabetes mellitus, type 2. 5. Chronic inflammatory demyelinating polyneuropathy - this is the reason he is on immunosuppressive medication. PLAN: The patient can be transferred out to telemetry, where in the process of seeing if he can sebas arboleda be sent down to [facility] to his hat measurer for consideration of TAVR. He is continuing on antibiotics for his ischemic bowel symptoms. His potassium will be replaced. His labs will be davis tored.
[2018-08-08] MEDS: OXcarbazepine 300 MG TAB PO SCH (11:26)
[2018-08-08] MEDS: Insulin Regular 300 UNITS/3 ML VIAL SC PRN (16:32)
[2018-08-08] MEDS: Enoxaparin Sodium 30 MG/0.3 ML SYRINGE SC SCH (20:37)
[2018-08-08] MEDS: Atorvastatin Calcium 40 MG TAB PO SCH (20:38)
--- NOTE | 2018-08-08 22:37 | PRG ---
DATE OF SERVICE: 08/08/2018 Leobardo De Santiago is sitting up in a chair. He denies any abdominal pain. He is tolerating regular diet . He is having bowel movements. PHYSICAL EXAMINATION: VITAL SIGNS: 96 heart rate, 178/88. LUNGS: Clear to auscultation. CARDIAC: Regular rate and rhythm without murmur or gallop. ABDOMEN: Soft, nontender. EXTREMITIES: Unremarkable. LABORATORY: White count 7, hemoglobin 11.1. Basic metabolic profile was normal. ASSESSMENT AND PLAN: No evidence of a bowel obstruction. At this point, would discontinue intraveno us antibiotics as there is no intra-abdominal indication for them. Surgery will sign off and see him as needed. Please call if indicated.
[2018-08-09] MEDS: Levothyroxine Sodium 125 MCG TAB PO SCH (05:59)
[2018-08-09] MEDS: Liothyronine Sodium 5 MCG TAB PO SCH (05:59)
[2018-08-09 06:10] LABS: ALT (SGPT) 90 U/L (8-55); AST (SGOT) 77 U/L (5-34); Alkaline Phosphatase 50 U/L (40-150); Anion Gap 16 mmol/L (10-20); BUN (Urea Nitrogen) 22 mg/dL (8.4-25.7); Bilirubin, Total 0.5 mg/dL (0.2-1.2); Calc. Creatinine Clearance 110 mL/min (70-130); Calcium 8.3 mg/dL (7.8-10.44); Carbon Dioxide 22 mmol/L (23-31); Chloride 101 mmol/L (98-107); Estimated GFR-MDRD 76; Globulin 3.3 g/dL (2.4-3.5); Glucose 159 mg/dL (80-115); Potassium 3.5 mmol/L (3.5-5.1); Protein, Total 6.3 g/dL (5.8-8.1); Sodium 135 mmol/L (136-145)
[2018-08-09 06:37] LABS: Hemoglobin 11.7 g/dL (14.0-18.0); Hypochromia SLIGHT = 6-15 cells (100X) (0-5/hpf); Lymphocytes 6 % (21-51); MDiff Complete? YES; Mean Corpuscular HGB CONC 32.8 g/dL (32.0-36.0); Mean Corpuscular Hemoglobin 30.9 pg (27.0-31.0); Mean Corpuscular Volume 94.3 fL (78.0-98.0); Mean Platelet Volume 7.9 fL (7.4-10.4); Monocytes 8 % (0-10); Neutrophil 86 % (42-75); PLT Morphology Comment Appears Adequate; Platelet Count 262 thou/uL (130-400); RBC Distribution Width 13.5 % (11.5-14.5); Red Blood Cell (RBC) Count 3.79 mill/uL (4.70-6.10); White Blood Cell (WBC) Count 6.8 thou/uL (4.8-10.8)
[2018-08-09] MEDS: Gabapentin 100 MG CAP PO SCH ×3 (09:43→20:01)
[2018-08-09] MEDS: Famotidine 20 MG TAB PO SCH (09:43)
[2018-08-09] MEDS: Metoprolol Tartrate 25 MG TAB PO SCH (09:43)
[2018-08-09] MEDS: Furosemide 40 MG TAB PO SCH (09:43)
[2018-08-09] MEDS: azaTHIOprine 50 MG TAB PO SCH (09:43)
[2018-08-09] MEDS: Clopidogrel Bisulfate 75 MG TAB PO SCH (09:44)
--- NOTE | 2018-08-09 09:53 | PDOC.PN ---
- Subjective Encounter Start Date: 08/09/18 Encounter Start Time: 09:51 Mr. De Santiago was seen today in follow-up of NSTEMI. He does not have any complaints , but was noted to have loose stool which was pink tinged. He denies abdominal pain, - Objective Resuscitation Status: Resuscitation Status FULL:Full Resuscitation MAR Reviewed: Yes Vital Signs & Weight: Vital Signs (12 hours) Temp Pulse Resp BP BP Pulse Ox 08/09/18 08:56 90 L 08/09/18 08:55 83 20 08/09/18 08:15 98.1 F 101 H 19 163/86 H 96 08/09/18 04:00 97.6 F 92 24 H 152/77 H 95 08/08/18 22:20 92 18 94 L Weight Admit Weight 236 lb 12.423 oz Weight 237 lb 10.533 oz Most Recent Monitor Data Heart Rate from ECG 100 NIBP 176/90 NIBP BP-Mean 118 Respiration from ECG 25 SpO2 100 I&O: 08/08/18 08/09/18 08/10/18 06:59 06:59 06:59 Intake Total 1912 2254 Output Total 2020 490 Balance -108 1764 Result Diagrams: 08/09/18 05:32 08/09/18 05:32 Additional Labs: Accuchecks 08/08/18 08/08/18 08/08/18 21:12 16:31 11:05 POC Glucose 161 H 171 H 149 H Phys Exam - Physical Examination HEENT: PERRLA Respiratory: no wheezing, no rales, no rhonchi, clear to auscultation bilateral Cardiovascular: RRR, no significant murmur, no rub no gallop Gastrointestinal: soft, non-tender, positive bowel sounds mild abdominal distention Musculoskeletal: no edema Psychiatric: normal affect, A&O x 3 Dx/Plan (1) NSTEMI (non-ST elevated myocardial infarction) Code(s): I21.4 - NON-ST ELEVATION (NSTEMI) MYOCARDIAL INFARCTION Status: Acute (2) Hematochezia Code(s): K92.1 - MELENA Status: Acute (3) Chronic systolic congestive heart failure, NYHA class 2 Code(s): I50.22 - CHRONIC SYSTOLIC (CONGESTIVE) HEART FAILURE Status: Acute (4) Diabetes mellitus type 2, insulin dependent Code(s): E11.9 - TYPE 2 DIABETES MELLITUS WITHOUT COMPLICATIONS; 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.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 Status: Chronic (5) Hypertension Code(s): I10 - ESSENTIAL (PRIMARY) HYPERTENSION Status: Chronic (6) Acute renal failure Status: Resolved (7) CIDP (chronic inflammatory demyelinating polyneuropathy) Code(s): G61.81 - CHRONIC INFLAMMATORY DEMYELINATING POLYNEURITIS Status: Chronic (8) Elevated LFTs Code(s): R94.5 - ABNORMAL RESULTS OF LIVER FUNCTION STUDIES Status: Resolved (9) Aortic stenosis Code(s): I35.0 - NONRHEUMATIC AORTIC (VALVE) STENOSIS Status: Chronic - Plan * NSTEMI- blood pressure has heart rate are stable * HTN- blood pressure is elevated- will re-start Amlodipine and Ramipril * Hematochezia- This may be due to Heparin, Plavix and aspirin-. He is now off Heparin. His H&H has been stable. Will re-start the PPI, and likely this can be evaluated as an outpatient * DM- blood glucose is stable * Disposition as per Cardiology.
[2018-08-09] MEDS ORDERED: Amlodipine 5 MG TAB PO SCH (10:15)
[2018-08-09] MEDS ORDERED: Furosemide 40 MG/4 ML VIAL SLOW IVP SCH (12:45)
[2018-08-09] MEDS: OXcarbazepine 300 MG TAB PO SCH (13:41)
[2018-08-09 15:17] VITALS: BMI 31.3
[2018-08-09] MEDS: Carvedilol 6.25 MG TAB PO SCH (16:32)
[2018-08-09] MEDS: Enoxaparin Sodium 30 MG/0.3 ML SYRINGE SC SCH (20:00)
[2018-08-09] MEDS: Ramipril 5 MG CAP PO SCH (20:00)
[2018-08-09] MEDS: Atorvastatin Calcium 40 MG TAB PO SCH (20:01)
[2018-08-10] MEDS: Levothyroxine Sodium 125 MCG TAB PO SCH (05:39)
[2018-08-10] MEDS: Liothyronine Sodium 5 MCG TAB PO SCH (05:39)
[2018-08-10 05:58] LABS: #Eosinphils 0.2 thou/uL (0.0-0.7); #Lymphocytes 0.6 thou/uL (1.20-3.40); #Monocytes 0.9 thou/uL (0.11-0.59); #Neutrophils 6.4 thou/uL (1.40-6.50); %Basophils 0.4 % (0.0-1.0); %Eosinophils 2.7 % (0.0-10.0); %Lymphocytes 7.7 % (21.0-51.0); %Monocytes 11.1 % (0.0-10.0); %Neutrophils 78.1 % (42.0-75.0); Hemoglobin 12.1 g/dL (14.0-18.0); Mean Corpuscular HGB CONC 32.9 g/dL (32.0-36.0); Mean Corpuscular Hemoglobin 31.1 pg (27.0-31.0); Mean Corpuscular Volume 94.4 fL (78.0-98.0); Mean Platelet Volume 8.3 fL (7.4-10.4); Platelet Count 277 thou/uL (130-400); RBC Distribution Width 13.5 % (11.5-14.5); Red Blood Cell (RBC) Count 3.89 mill/uL (4.70-6.10); White Blood Cell (WBC) Count 8.2 thou/uL (4.8-10.8)
[2018-08-10] MEDS ORDERED: Ibuprofen 200 MG TAB PO SCH (06:00)
[2018-08-10 06:26] LABS: ALT (SGPT) 67 U/L (8-55); AST (SGOT) 56 U/L (5-34); Alkaline Phosphatase 54 U/L (40-150); Anion Gap 18 mmol/L (10-20); BUN (Urea Nitrogen) 17 mg/dL (8.4-25.7); Bilirubin, Total 0.5 mg/dL (0.2-1.2); Calc. Creatinine Clearance 118 mL/min (70-130); Calcium 8.3 mg/dL (7.8-10.44); Carbon Dioxide 21 mmol/L (23-31); Chloride 98 mmol/L (98-107); Estimated GFR-MDRD 83; Globulin 3.2 g/dL (2.4-3.5); Glucose 189 mg/dL (80-115); Potassium 3.1 mmol/L (3.5-5.1); Protein, Total 6.2 g/dL (5.8-8.1); Sodium 134 mmol/L (136-145)
[2018-08-10] MEDS ORDERED: Amlodipine 5 MG TAB PO SCH (09:00)
[2018-08-10] MEDS: azaTHIOprine 50 MG TAB PO SCH (09:05)
[2018-08-10] MEDS: Furosemide 40 MG TAB PO SCH (09:05)
[2018-08-10] MEDS: Carvedilol 6.25 MG TAB PO SCH (09:05)
[2018-08-10] MEDS: Gabapentin 100 MG CAP PO SCH ×2 (09:06→14:39)
[2018-08-10] MEDS: Ramipril 5 MG CAP PO SCH (09:06)
[2018-08-10] MEDS: Clopidogrel Bisulfate 75 MG TAB PO SCH (09:06)
[2018-08-10] MEDS ORDERED: Potassium Chloride 20 MEQ TAB PO SCH (10:45)
--- NOTE | 2018-08-10 11:20 | PDOC.PN ---
- Subjective Encounter Start Date: 08/10/18 Encounter Start Time: 11:19 Mr. De Santiago was seen today in follow-up of NSTEMI. He does not have any complaints this morning. He denies chest pain or shortness of breath. - Objective Resuscitation Status: Resuscitation Status FULL:Full Resuscitation MAR Reviewed: Yes Vital Signs & Weight: Vital Signs (12 hours) Temp Pulse Resp BP BP Pulse Ox 08/10/18 07:58 93 L 08/10/18 07:52 97.6 F 89 16 134/68 93 L 08/10/18 06:57 97 08/10/18 06:55 78 16 97 08/10/18 03:28 98.4 F 95 20 156/74 H 93 L 08/10/18 02:51 82 18 97 Weight Admit Weight 236 lb 12.423 oz Weight 224 lb 7 oz Most Recent Monitor Data Heart Rate from ECG 100 NIBP 176/90 NIBP BP-Mean 118 Respiration from ECG 25 SpO2 100 I&O: 08/09/18 08/10/18 08/11/18 06:59 06:59 06:59 Intake Total 2254 1444 Output Total 490 2900 Balance 1764 -1456 Result Diagrams: 08/10/18 05:31 08/10/18 05:31 Additional Labs: Accuchecks 08/10/18 08/09/18 08/09/18 05:49 20:44 05:57 POC Glucose 177 H 223 H 164 H Phys Exam - Physical Examination HEENT: PERRLA Respiratory: no wheezing, no rales, no rhonchi, clear to auscultation bilateral Cardiovascular: RRR, no significant murmur, no rub no gallop Gastrointestinal: soft, non-tender, no distention, positive bowel sounds Musculoskeletal: edema present trace pedal edema Dx/Plan (1) NSTEMI (non-ST elevated myocardial infarction) Code(s): I21.4 - NON-ST ELEVATION (NSTEMI) MYOCARDIAL INFARCTION Status: Acute (2) Hematochezia Code(s): K92.1 - MELENA Status: Acute (3) Chronic systolic congestive heart failure, NYHA class 2 Code(s): I50.22 - CHRONIC SYSTOLIC (CONGESTIVE) HEART FAILURE Status: Acute (4) Diabetes mellitus type 2, insulin dependent Code(s): E11.9 - TYPE 2 DIABETES MELLITUS WITHOUT COMPLICATIONS; 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
--- NOTE | 2018-08-10 12:07 | DIS ---
DATE OF ADMISSION: 08/05/2018 DATE OF DISCHARGE: 08/10/2018 PRIMARY CARE PHYSICIAN: Dr. Darren Rose. DISCHARGE DISPOSITION: Home. PRIMARY DISCHARGE DIAGNOSES: 1. Non-ST elevation myocardial infarction. 2. Chronic systolic heart failure. 3. Hypertension. 4. Severe aortic stenosis. 5. Diabetes mellitus. DISCHARGE MEDICATIONS: Include Lasix 40 mg daily, carvedilol 6.25 mg twice a day, Altace 5 mg 2 tabl ets twice daily, Primidone 50 mg 2 tablets twice a day, Trileptal 300 mg daily, omega 3 fish oil 1 ca psule daily, Cytomel 5 mcg daily, levothyroxine 125 mcg daily, Tresiba 57 units subcu daily, NovoLog as directed, Neurontin 150 mg t.i.d., folic acid 0.4 mg daily, fenofibrate 200 mg daily, Nexium 20 mg daily, Flexeril 10 mg 2 tablets q.p.m., Plavix 75 mg daily, cilostazol 100 mg daily, vitamin D3 5000 units daily, Alphagan drops twice a day, Imuran 50 mg daily, Lipitor 40 mg daily, aspirin 81 mg michelle y, amlodipine 5 mg daily. PROCEDURES DONE DURING ADMISSION: The patient had an echocardiogram in which the ejection fraction w as visualized at 20%-30%. There was normal left atrial size. There was some severe aortic stenosis, which was present. CODE STATUS: FULL CODE. ALLERGIES: ATENOLOL. HOSPITAL COURSE: Mr. De Santiago is a very pleasant 67-year-old gentleman who presented to the emergency r oom at [place]. Initially, he was complaining of nausea and vomiting, and it was thought that he m ight have some form of obstruction. He was seen by General Surgery and this was essentially ruled ou t. However, in review of his lab work, it was found that his troponin was elevated and peeked at a l evel of 40.3. Cardiology was consulted and he was placed on a heparin drip. He was also placed on b eta-davis, aspirin and Plavix. He typically gets most of his care in [place] and is seen by Dr. Wynn on a regular basis. There was some discussion to possibly get him transferred to [facility] in the [facility]; however, they felt that it was best to stabilize him here and then he can b e evaluated after discharge. This was essentially done. He was allowed to basically "cool off" with regards to the NSTEMI. There was no evidence of any arrhythmia. He was able to tolerate a solid di et. 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
[2018-08-10] MEDS: OXcarbazepine 300 MG TAB PO SCH (12:40)
[2018-08-10 14:46] VITALS: BP 153/70; TEMP 97.9
== END 2018-08-10 15:09 | disposition home or self-care (01) | DRG 281 ==
LOC: CCU 12:38 → 2NO 08-08 17:26
PROVIDERS: ADMIT Internal Medicine; ATTEND Internal Medicine
DX: I21.4 Non-ST elevation (NSTEMI) myocardial infarction (principal); I50.22 Chronic systolic (congestive) heart failure; N17.9 Acute kidney failure, unspecified; N18.4 Chronic kidney disease, stage 4 (severe); G61.81 Chronic inflammatory demyelinating polyneuritis; K55.9 Vascular disorder of intestine, unspecified; I42.9 Cardiomyopathy, unspecified; E10.22 Type 1 diabetes mellitus with diabetic chronic kidney disease; M19.90 Unspecified osteoarthritis, unspecified site; E78.5 Hyperlipidemia, unspecified; I12.9 Hypertensive chronic kidney disease with stage 1 through stage 4 chronic kidney disease, or unspecified chronic kidney disease; Z95.1 Presence of aortocoronary bypass graft; I73.9 Peripheral vascular disease, unspecified; Z91.81 History of falling; E03.9 Hypothyroidism, unspecified; K21.9 Gastro-esophageal reflux disease without esophagitis; Z80.8 Family history of malignant neoplasm of other organs or systems; R55 Syncope and collapse; I35.0 Nonrheumatic aortic (valve) stenosis; K75.89 Other specified inflammatory liver diseases; E66.9 Obesity, unspecified; E10.319 Type 1 diabetes mellitus with unspecified diabetic retinopathy without macular edema; Z86.73 Personal history of transient ischemic attack (TIA), and cerebral infarction without residual deficits
CPT/HCPCS: 36415; 36416; 80053; 82010; 82533; 82550; 82553; 82805; 83605; 83630; 83690; 83735; 83880; 84100; 84484; 85007; 85025; 85027; 85730; 86140; 86850; 86900; 86901; 87040; 87045; 87046; 87324; 87328; 87329; 87449; 87899; 93005; 93010; 93306; 93798; 94640; J1644; J1650; J1815; J1940; J2543; J7050; J7500; J7620; S0028